=== PATIENT | female | born 1970 | race Caucasian/White ===

== ENCOUNTER 2019-03-04 06:40 | Day surgery (SDC) | payer OTHER ==
[2019-03-04] VITALS (24 sets, daily range): BP systolic 104–159; BP diastolic 55–91; PULSE 64–83; RESP 11–25; Ht 162.6 cm; Wt 57.6 kg
[~2019-03-04] VITALS: Ht 162.6 cm; Wt 57.6 kg
[2019-03-04] MEDS ORDERED: CEFAZOLIN 1 GM INJ ONE (07:00)
[2019-03-04] MEDS ORDERED: GLYCOPYRROLATE 0.4 MG INJ ONE (07:00)
[2019-03-04] MEDS ORDERED: PROPOFOL 200 MG INJ ONE (07:00)
[2019-03-04] MEDS ORDERED: CEFAZOLIN 1 GM/50 ML (PMX) 50 ML IVPB ONE (07:00)
[2019-03-04] MEDS ORDERED: NEOSTIGMINE 3 MG/3 ML SYRINGE ONE (07:00)
[2019-03-04] MEDS ORDERED: SOD CHLORIDE 0.9% 1,000 ML IV SCH (07:00)
[2019-03-04] MEDS ORDERED: LEVE-5 PO (08:06)
--- NOTE | 2019-03-04 09:27 | PREAC ---
Date/Time of Note Date/Time of Note DATE: 03/04/19 TIME: 09:26 Anesthesia Eval and Record Evaluation Time Pre-Procedure Interview DATE: 03/04/19 TIME: 09:26 Age 49 Sex female NPO: 8 hrs Preoperative diagnosis cholelithiasis Planned procedure laparoscopic cholecystectomy Past Medical History Past Medical History: Includes Neuro: Seizure disorder GI: GERD Surgery & Anesthesia Issues No known issue Meds Anticoagulation: No Beta Panchito within 24 hr: No Reason Beta Panchito not given: Pt. not on B-Panchito Reported Medications Levetiracetam* (Keppra*) 500 Mg Tablet, 500 MG PO BID, TAB 03/04/19 Current Medications Sodium Chloride 1,000 ml @ 75 mls/hr [id number] IV Last administered on 03/04/19at 07:52; Admin Dose 75 MLS/HR; Start 03/04/19 at 07:00; Stop 03/04/19 at 20:19 Meds reviewed: Yes Allergies Coded Allergies: Sulfa (Sulfonamide Antibiotics) (Verified Allergy, Severe, ANAPHYLACTIC, 03/04/19) iodine (Verified Allergy, Severe, ANAPHYLACTIC, 03/04/19) Allergies Reviewed: Yes Labs/Studies Labs Reviewed: Reviewed by anesthesiologist test: Negative Studies: ECG, CXR Pre-procedure Exam Last vitals Vital Signs Date Temp Pulse Resp B/P (MAP) Pulse Ox O2 O2 Flow FiO2 Time Delivery Rate 03/04/19 97.7 83 16 137/87 100 Room Air 07:45 (104) Airway: Adequate mouth opening, Adequate thyromental dist Mallampati: Mallampati II Teeth: Normal Lung: Normal Heart: Normal ASA Physical Status ASA physical status: 2 Emergency: None Planned Anesthetic General/MAC: ETT Nerve block: TAP (bilateral) Planned Pain Management Single shot nerve block, Parenteral pain med Pre-operative Attestations Prior to commencing anesthesia and surgery, the patient was re-evaluated, there was verification of: *The patient's identity *The results of appropriate recent lab work and preoperative vital signs *The above evaluation not changing prior to induction *Anesthetic plan, risk benefits, alternative and complications discussed with patient/family; questions answered; patient/family understands, accepts and wishes to proceed. MONICA ACEVEDO MD March 04, 2019 09:27
[2019-03-04] MEDS ORDERED: MIDAZOLAM 1 MG/ML 2 ML INJ ONE (09:44)
[2019-03-04] MEDS ORDERED: LIDOCAINE 2% (SDV) 5 ML INJ ONE (09:46)
[2019-03-04] MEDS ORDERED: ROCURONIUM 50 MG INJ ONE (09:46)
[2019-03-04] MEDS ORDERED: PROPOFOL 20 ML ONE (09:46)
[2019-03-04] MEDS ORDERED: SUCCINYLCHOLINE CHLORIDE 100 MG/5 ML SYG IV ONE (09:46)
[2019-03-04] MEDS ORDERED: FENTAnyl 50 MCG/ML VIAL ONE (09:47)
[2019-03-04] MEDS ORDERED: ROPIVACAINE 0.5 % 30 ML VIAL ONE (09:47)
[2019-03-04] MEDS ORDERED: DIPHENHYDRAMINE 50 MG INJ IV PRN (10:00)
[2019-03-04] MEDS ORDERED: PROCHLORPERAZINE 10 MG INJ IV PRN (10:00)
[2019-03-04] MEDS ORDERED: HYDROmorphONE 1 MG/5 ML IV SYRINGE IV PRN ×2 (10:00)
[2019-03-04] MEDS ORDERED: OXYCODONE/ACETAMINOPHEN (5/325) TAB PO PRN (10:00)
[2019-03-04] MEDS ORDERED: ONDANSETRON 4 MG INJ IV PRN (10:00)
[2019-03-04] MEDS ORDERED: MEPERIDINE 25 MG INJ IV PRN (10:00)
[2019-03-04] MEDS ORDERED: DEXAMETHASONE 4 MG/ML 5 ML INJ ONE (10:22)
[2019-03-04] MEDS ORDERED: ONDANSETRON 4 MG INJ ONE (10:22)
[2019-03-04] MEDS ORDERED: FAMOTIDINE 20 MG INJ ONE (10:23)
[2019-03-04] MEDS ORDERED: HYDROmorphONE 2 MG/ML SYG ONE (10:24)
--- NOTE | 2019-03-04 10:39 | OPR ---
Date/Time of Note Date/Time of Note DATE: 03/04/19 TIME: 10:37 Operative Report Procedure Date: March 04, 2019 Preoperative Diagnosis symptomatic gallstones Postoperative Diagnosis same Operation/Procedure Performed laparoscopic cholecystectomy Surgeon see signature line [employer] Account Manager none Anesthesia Type: general Estimated Blood Loss: 10 - 50 ml's Transfusion none Specimen gallbladder Grafts/Implants none Complications none Pt Condition Post Procedure: stable Indications This is a 49-year-old female with some tender gallstones. She required surgical excision of her gallbladder. Risks alternatives benefits and personal were discussed the patient. Patient expressed understanding and consents to the operation. Procedure Description Patient is taken to the OR and prepped and draped in usual sterile fashion. Surgical timeout is performed. IV antibiotics given. Infraumbilical transverse incision was made to 15 blade. Dissection with cautery skin onto the fascia. The fascia was grasped with Jesus Alberto's and divided with curved Becker scissors. 0 Vicryl use this was placed into the fascia. Lee trocar was introduced. Pneumoperitoneum is established. Midepigastric 12 mm optical trochars were placed under direct visualization. Right upper quadrant upper flank 5 mm optical trochars were placed under direct visualization. Upon initial inspection there is some adhesions to the gallbladder. The gallbladder is retracted in a lateral cephalad direction. [place] graspers were used to dissect out the cystic duct and cystic artery. The critical view was established. The cystic duct is divided to close proximal clip distal and the division was performed lap scopic scissors. Cystic artery was divided to close proximal clip distal and the divisions performed laparoscopic scissors. The gallbladder is taken off the gallbladder bed. Good hemostasis status. The gallbladder is retrieved Endo Catch bag. All ports removed under direct visualization. 0 Vicryl use this was tied down. Skin is closed and skin jethro. A tap block was provided by the anesthesiologist. Dry dressings were applied. Frank BOSE March 04, 2019 10:39
[2019-03-04] MEDS ORDERED: HYDROCODONE/APAP (5/325) TAB PO ONE (11:00)
[2019-03-04] MEDS: HYDROmorphONE 1 MG/5 ML IV SYRINGE IV PRN ×2 (11:03→11:16)
[2019-03-04] MEDS: FENTAnyl 50 MCG/ML VIAL IV PRN ×2 (11:04→11:16)
--- NOTE | 2019-03-04 11:37 | PAC ---
Date/Time of Note Date/Time of Note DATE: 03/04/19 TIME: 11:36 Post-Anesthesia Notes Post-Anesthesia Note Last documented vital signs Vital Signs Date Temp Pulse Resp B/P (MAP) Pulse Ox O2 O2 Flow FiO2 Time Delivery Rate 03/04/19 97.6 65 16 122/76 100 Room Air 11:11 (91) Activity: WNL Respiratory function: WNL Cardiovascular function: WNL Mental status: Baseline Pain reasonably controlled: Yes Hydration appropriate: Yes Nausea/Vomiting absent: Yes MONICA ACEVEDO MD March 04, 2019 11:37
[2019-03-04] MEDS ORDERED: KETOROLAC 30 MG INJ IM STA (13:30)
== END 2019-03-04 16:54 | disposition home or self-care (01) ==
LOC: SDS 06:40
PROVIDERS: ATTEND Surgery
DX: K80.20 Calculus of gallbladder without cholecystitis without obstruction (principal); G40.909 Epilepsy, unspecified, not intractable, without status epilepticus
CPT/HCPCS: 47562; 84703; 88304; J0690; J1100; J1170; J1885; J2250; J2405; J2795; J3010; Z7512; Z7610